=== PATIENT | female | born 1960 | race Caucasian/White ===

== ENCOUNTER 2023-11-01 13:02 | Emergency (ER) | payer MEDICAID ==
[~2023-11-01] VITALS: Ht 149.9 cm; Wt 63.5 kg
[2023-11-01 13:42] VITALS: BP 154/68; PULSE 87; RESP 18; TEMP 98.2; O2SAT 99
[2023-11-01] MEDS: ACETAMINOPHEN 325 MG TAB PO ONE (14:29)
[2023-11-01 15:37] VITALS: BP 148/68; PULSE 82; RESP 18; TEMP 98.3; O2SAT 98
[2023-11-01] MEDS ORDERED: IBUP-2213 PO (16:37)
== END 2023-11-01 16:51 | disposition home or self-care (01) ==
LOC: MED 13:02
DX: S00.03XA Contusion of scalp, initial encounter (principal); S80.12XA Contusion of left lower leg, initial encounter; M25.511 Pain in right shoulder; M54.2 Cervicalgia; Z79.899 Other long term (current) drug therapy; Z88.8 Allergy status to other drugs, medicaments and biological substances; Y04.2XXA Assault by strike against or bumped into by another person, initial encounter; Y93.89 Activity, other specified; Y92.89 Other specified places as the place of occurrence of the external cause; Y99.8 Other external cause status
CPT/HCPCS: 70450; 70486; 71045; 72125; 73030; 73562; 90471; 90715; 99285

== ENCOUNTER 2023-11-15 20:19 | Emergency (ER) | payer MEDICAID ==
[~2023-11-15] VITALS: Ht 142.2 cm; Wt 70.5 kg
[~2023-11-15 20:19] MED LIST: IBUP-2213 PO
[2023-11-15 21:09] VITALS: BP 135/68; PULSE 93; RESP 16; TEMP 97.1; O2SAT 97
[2023-11-15 22:20] LABS: FLU A ANTIGEN negative (NEGATIVE); FLU B ANTIGEN NEGATIVE (NEGATIVE)
[2023-11-15] MEDS: HYDROcodone/APAP 5/325 MG 1 TAB TAB PO ONE (23:22)
== END 2023-11-15 23:26 | disposition home or self-care (01) ==
LOC: MED 20:19
DX: J06.9 Acute upper respiratory infection, unspecified (principal); Z20.822 Contact with and (suspected) exposure to COVID-19; B34.9 Viral infection, unspecified; Z79.899 Other long term (current) drug therapy
CPT/HCPCS: 99283

== ENCOUNTER 2024-05-16 12:35 | Emergency (ER) | payer SELFPAY ==
[~2024-05-16] VITALS: Ht 149.9 cm; Wt 63.5 kg
[2024-05-16 13:22] VITALS: BP 147/63; PULSE 74; RESP 18; TEMP 97.9; O2SAT 98
[2024-05-16] MEDS: KETOROLAC 30 MG/ML VIAL IM ONE (16:52)
[2024-05-16] MEDS: HYDROcodone/APAP 5/325 MG 1 TAB TAB PO ONE (16:52)
[2024-05-16] MEDS ORDERED: LID5T TP (17:24)
[2024-05-16] MEDS ORDERED: IBUP-2213 PO (17:24)
[2024-05-16] MEDS ORDERED: ACET-8905 PO (17:24)
== END 2024-05-16 17:44 | disposition home or self-care (01) ==
LOC: MED 12:35
DX: S39.012A Strain of muscle, fascia and tendon of lower back, initial encounter (principal); M54.16 Radiculopathy, lumbar region; M79.605 Pain in left leg; M79.604 Pain in right leg; R20.0 Anesthesia of skin; Z79.899 Other long term (current) drug therapy; Z88.8 Allergy status to other drugs, medicaments and biological substances; X58.XXXA Exposure to other specified factors, initial encounter; Y93.89 Activity, other specified; Y92.89 Other specified places as the place of occurrence of the external cause; Y99.8 Other external cause status
CPT/HCPCS: 96372; 99283; J1885